=== PATIENT | female | born 1980 | race Caucasian/White ===

== ENCOUNTER → 2023-04-24 | Outpatient (CLI) | payer BC ==
[~2023-04-24] MED LIST: ASPI-84 PO; FOLI-74 PO; MEPE50TA PO; ONDN4T PO; OXYC-109 PO; OXYC-473 PO; PAIN MED; PANT40TA2 PO; PARO40TA3 PO
--- NOTE | 2023-04-24 11:40 | Diagnostic Imaging Report ---
Indication: Abnormal screening mammogram. Study performed for further evaluation. Comparison is made with outside mammogram from 04/07/2023. Outside screening mammogram described a nodule in the upper outer right breast at posterior depth. Sonographic interrogation of the upper outer right breast was performed. There is a lymph node at the 9:00 location, 8-9 cm from the nipple measuring 5 x 2 x 5 mm. This has an echogenic hilum. No other masses are seen. No other sonographic abnormalities are detected. IMPRESSION: BI-RADS Category 2 Benign-appearing lymph node in the 9:00 location right breast, likely accounting for the mammographic density. The patient may return to routine annual screening mammography. ACR BI-RADS Category 2: Benign findings. Dictated by: Dictated on workstation # [id number]
== END ==
LOC: RAD 08:44 → EDBD 09:15
PROVIDERS: ATTEND Registered Nurse
DX: N63.15 Unspecified lump in the right breast, overlapping quadrants (principal)